=== PATIENT | female | born 1985 | race Caucasian/White ===

== ENCOUNTER 2017-02-11 13:55 | Emergency (ER) | payer OTHER ==
[~2017-02-11] VITALS: Ht 160 cm; Wt 120.0 kg
[2017-02-11 14:00] VITALS: Ht 160 cm; Wt 120.0 kg
[2017-02-11] MEDS ORDERED: SOD CHLORIDE 0.9% 1,000 ML IV STA (17:04)
[2017-02-11 17:18] VITALS: BP 122/83; PULSE 80; RESP 29
[2017-02-11 17:19] LABS: ADD SCAN DIFF NO
[2017-02-11 17:21] LABS: BASOPHILS % 0.2 % (0.0-2.0); EOSINOPHILS # 0.1 10^3/ul (0.0-0.5); EOSINOPHILS % 0.9 % (0.0-7.0); HEMOGLOBIN 10.8 g/dl (12.0-16.0); LYMPHOCYTES # 2.1 10^3/ul (0.8-2.9); LYMPHOCYTES % 32.2 % (15.0-51.0); MEAN CORPUSCULAR HEMOGLOBIN 31.3 pg (29.0-33.0); MEAN CORPUSCULAR HGB CONC 32.7 g/dl (32.0-37.0); MEAN CORPUSCULAR VOLUME 95.7 fl (82.0-101.0); MEAN PLATELET VOLUME 9.8 fl (7.4-10.4); MONOCYTE # 0.5 10^3/ul (0.3-0.9); MONOCYTES % 7.4 % (0.0-11.0); NEUTROPHIL # 3.9 10^3/ul (1.6-7.5); PLATELET COUNT 241 10^3/UL (140-415); RED BLOOD COUNT 3.45 10^6/ul (4.20-5.40); RED CELL DISTRIBUTION WIDTH 13.6 % (11.5-14.5); WHITE BLOOD COUNT 6.5 10^3/ul (4.8-10.8)
[2017-02-11 17:28] LABS: ADD UMIC YES; URINE BILIRUBIN (Dip) NEGATIVE (NEGATIVE); URINE BLOOD (Dip) TRACE (NEGATIVE); URINE COLOR YELLOW (YELLOW); URINE GLUCOSE (Dip) NEGATIVE (NEGATIVE); URINE KETONES (Dip) NEGATIVE (NEGATIVE); URINE LEUKOCYTE ESTERASE (Dip) 1+ (NEGATIVE); URINE NITRITE (Dip) NEGATIVE (NEGATIVE); URINE UROBILINOGEN (Dip) 1.0 E.U./dL (0.1-1.0)
--- NOTE | 2017-02-11 18:03 | RADRPT ---
PROCEDURE: US OB CLINICAL INDICATION: Vaginal Bleed () TECHNIQUE: Multiple sonographic images of the pelvis were obtained. The images were reviewed on a PACS workstation. COMPARISON: None FINDINGS: The cervix is not well visualized. There is a single viable intrauterine gestation. Cardiac activity is present with 132 beats per minute. There is a breech presentation. The placenta is fundal. There is no evidence for an abruption or placenta previa. There is a normal amount of amniotic fluid with an BARRY = 18.6 cm. Measurements were made in order to determine age. The results are as follows (cm): BPD =8.70 HC =31.18 AC =32.68 FL =6.94 Estimated gestational age by ultrasound of approximately 35 weeks, 4 days. The estimated date of delivery by ultrasound is 03/14/2017. EFW = 2820 grams IMPRESSION: Single viable intrauterine gestation of approximately 35 weeks, 4 days . The estimated date of delivery is 03/14/2017 . Breech presentation. Normal BARRY. RPTAT: EE Physician Joseph Date Time Electronically viewed and signed by Physician Joseph on 02/11/2017 18:02 /
--- NOTE | 2017-02-11 18:22 | ERD ---
ER Documentation Chief Complaint Date/Time DATE: 02/11/17 TIME: 18:18 Chief Complaint ALOC, DROWSY BIB HOMELESS RESCUE TO GET CHECKED OUT HPI 31-year-old female, history of homelessness, bipolar disorder who presents after a homeless rescue project evaluated the patient and found out that she may be . The patient is a she thinks she is about 4 months . She describes mild abdominal cramping no vaginal bleeding or discharge. Mild lower extremity swelling that has been consistent with prior . ROS All systems reviewed and are negative except as per history of present illness. Medications Home Meds No Active Prescriptions or Reported Meds Allergies Allergies: Coded Allergies: No Known Allergy (Unverified , 01/30/16) PMhx/Soc Hx Alcohol Use: Yes Hx Substance Use: Yes (meth use ) Hx Tobacco Use: Yes FmHx Family History: No diabetes Physical Exam Vitals Vital Signs Date Time Temp Pulse Resp B/P Pulse Ox O2 Delivery O2 Flow Rate FiO2 02/11/17 17:18 80 29 122/83 100 Room Air 02/11/17 14:00 98.0 92 18 133/78 99 Physical Exam General: Disheveled but no significant distress Head: Normocephalic, atraumatic. Eyes: Pupils equally reactive, EOM intact ENT: Moist mucous membranes Neck: Supple, no lymphadenopathy Respiratory: Lungs clear bilaterally, no distress Cardiovascular: RRR, no murmurs, rubs, or gallops Abdominal: Soft, gravid approximately 35-38 weeks gestation, nontender, no rebound or guarding : Deferred MSK: Bilateral lower extremity pedal edema, no unilateral swelling, 5/5 strength Neurologic: Alert and oriented, moving all extremities, normal speech, no focal weakness, no cerebellar signs Skin: No rash Psych: Normal mood Result Diagram: 02/11/17 1713 Results 24 hrs Laboratory Tests Test 02/11/17 17:13 White Blood Count 6.510^3/ul Red Blood Count 3.4510^6/ul Hemoglobin 10.8g/dl Hematocrit 33.0% Mean Corpuscular Volume 95.7fl Mean Corpuscular Hemoglobin 31.3pg Mean Corpuscular Hemoglobin Concent 32.7g/dl Red Cell Distribution Width 13.6% Platelet Count 67731^3/UL Mean Platelet Volume 9.8fl Neutrophils % 59.0% Lymphocytes % 32.2% Monocytes % 7.4% Eosinophils % 0.9% Basophils % 0.2% Nucleated Red Blood Cells % 0.0/100WBC Neutrophils # 3.910^3/ul Lymphocytes # 2.110^3/ul Monocytes # 0.510^3/ul Eosinophils # 0.110^3/ul Basophils # 0.010^3/ul Nucleated Red Blood Cells # 0.010^3/ul Current Medications Medications (Trade) Dose Ordered Sig/Shamika Route PRN Reason Start Time Stop Time Status Last Admin Dose Admin Sodium Chloride (NS) 1,000 ml @ 1,000 mls/hr Q1H STAT IV 02/11/17 17:04 02/11/17 18:03 DC 02/11/17 17:22 Procedures/MDM EKG, MONITORS, & DIAGNOSTIC IMAGING: us IMPRESSION: Single viable intrauterine gestation of approximately 35 weeks, 4 days . The estimated date of delivery is 03/14/2017 . Breech presentation. Normal BARRY. RPTAT: EE LAB INTERPRETATION: Rh+ Chemistry pending MEDICAL DECISION MAKING: The patient presents with abdominal pain and . Her clinical exam does not match her dates. Clinical exam is more consistent with late term gestation. The patient's abdominal pain is nonspecific and likely secondary to . No evidence of acute intra-abdominal process such as appendicitis or acute aortic process. The patient does have some mild pedal edema. Her blood pressure is in the 130s systolic. She does not meet diagnostic criteria for preeclampsia. However, liver function tests and LDH will be sent for screening given her poor primary care follow-up. The patient has not had OB care during this . ER COURSE: The patient has become agitated during her ER course. She wishes to leave without temperature profile. The patient does have bipolar disorder she has capacity. She is able to verbalize back me to the risks, benefits, alternatives. The patient will be leaving AGAINST MEDICAL ADVICE. It appears that the police unit with the patient will arrange for penitentiary. I strongly urged the patient to follow-up with an APPL[facility]QUE SEW[facility] and outpatient resources were provided. I kept the patient and/or family informed of laboratory and diagnostic imaging results throughout the emergency room course. DISPOSITION PLAN: Patient is leaving AGAINST MEDICAL ADVICE Departure Diagnosis: Primary Impression: Abdominal pain affecting Condition: Stable Patient Instructions: , New Dx Referrals: [facility] [id number] [facility] [address] [place] [address] OFFICE FAX , [facility] [address] [place] [address] [address]. MAO, [facility] [address] [place] [address] DR OSUNA, [facility] [address] [facility], [address], [place] [address] DR KEITHFELIX, [facility] [address] [facility], [place] [address] [facility] [address] [place] [address] [facility] [id number] [facility] [address] [facility] [place] [address] [address] TORRES, DAVID [address] [facility], [place] [address] DR BRANNON, [facility] [address] [place], [place] [id number] EBENEZER DOTSON MD February 11, 2017 18:21
[2017-02-11 18:35] LABS: URINE TOTAL PROTEIN (Dip) NEGATIVE (NEGATIVE)
[2017-02-11 18:36] LABS: SQUAMOUS EPITHELIAL CELL,UR MANY
[2017-02-11 18:37] LABS: BACTERIA,URINE MODERATE
[2017-02-11 19:02] LABS: ALBUMIN 2.7 g/dl (3.3-4.9); ALBUMIN/GLOBULIN RATIO 0.87; BILIRUBIN,INDIRECT 0.2 mg/dl (0-1.1); BILIRUBIN,TOTAL 0.2 mg/dl (0.2-1.3); CALCIUM 8.7 mg/dl (8.4-10.2); CREATININE 0.53 mg/dl (0.44-1.00); POTASSIUM 3.9 mmol/L (3.5-5.1); TOTAL PROTEIN 5.8 g/dl (6.1-8.1)
== END 2017-02-11 18:24 | disposition home or self-care (01) ==
LOC: E/R 13:55
DX: O26.893 Other specified pregnancy related conditions, third trimester (principal); R10.9 Unspecified abdominal pain; R40.2362 Coma scale, best motor response, obeys commands, at arrival to emergency department; R40.2252 Coma scale, best verbal response, oriented, at arrival to emergency department; R40.2142 Coma scale, eyes open, spontaneous, at arrival to emergency department; Z3A.35 35 weeks gestation of pregnancy
CPT/HCPCS: 36415; 76801; 80053; 81001; 83615; 83690; 84702; 85025; 86900; 86901; 87086; 99285; J7030; 81003

== ENCOUNTER 2017-03-13 16:55 | Inpatient (IN) | payer MEDICAID, OTHER ==
[2017-03-13] MEDS ORDERED: LACTATED RINGER'S 1,000 ML IV SCH (16:57)
[2017-03-13] MEDS ORDERED: METHYLERGONOVINE 0.2 MG INJ IM PRN ×2 (17:00→17:30)
[2017-03-13] MEDS ORDERED: CARBOPROST 250 MCG INJ IM PRN ×2 (17:00→17:30)
[2017-03-13] MEDS ORDERED: LIDOCAINE 1% (MPF) 30 ML INJ INJ PRN (17:00)
[2017-03-13] MEDS ORDERED: IBUPROFEN 600 MG TAB PO PRN (17:00)
[2017-03-13] MEDS ORDERED: OXYTOCIN 30 UNITS/LR 500 ML IV SCH ×2 (17:00)
[2017-03-13] MEDS ORDERED: BUTORPHANOL 2 MG INJ IV PRN (17:00)
[2017-03-13] MEDS ORDERED: OXYTOCIN 30 UNITS/LR 500 ML IV PRN ×2 (17:00→17:30)
[2017-03-13] MEDS ORDERED: MISOPROSTOL 200 MCG TAB PR PRN ×2 (17:00→17:30)
[2017-03-13] MEDS ORDERED: LACTATED RINGER'S 1,000 ML IV PRN (17:00)
[2017-03-13] MEDS ORDERED: BENZOCAINE 20% 56 ML SPRAY TOP PRN (17:30)
[2017-03-13] MEDS ORDERED: OXYCODONE/ASPIRIN (4.88/325) TAB PO PRN (17:30)
--- NOTE | 2017-03-13 17:34 | TRIAGE ---
OB Triage Datetime Report Generated by CPN: 03/13/2017 17:34 Datetime: 03/13/2017 17:29 Assessment Type: Admission Assessment Vaginal Bleeding: None Maternal Assessment Level of Consciousness: Fully Conscious DTR's/Clonus: DTRs 2+; No Clonus Headache: Denies Blurred Vision: No Respiratory Effort: Unlabored; Regular Rhythm; Equal Expansion Breath Sounds, Left: Clear and Equal Breath Sounds, Right: Clear and Equal Nausea/Vomiting: Denies RUQ Epigastric Pain: Denies Lower Extremities Edema: None Upper Extremities Edema: None Facial Edema: None Fall Risk Assessment History of Falling: (0) No Secondary Diagnosis: (0) No Ambulatory Aid: (0) Bedrest/Nurse Assist IV Therapy: (0) No Gait: (0) Normal/Bedrest/Immobile Mental Status: (0) Oriented to Own Ability Pain Assessment Pain Scale: 0 Pain Presence: None/Denies Pain Type: N/A Pain Goal: 2 Vaginal Exam Membrane Status: PT DELIVERED. CAME IN RUPTUREDM, 10 CM DILATED. Membranes Ruptured Date/Time: 03/13/2017 16:57 Membranes Rupture Method: Spontaneous Amniotic Fluid Color: Heavy Meconium Amniotic Fluid Amount: Moderate Amniotic Fluid Odor: None Datetime: 03/13/2017 17:28 Time of Arrival: 03/20/2017 15:00 EGA: 41.0 Arrived By: Wheelchair Arrived By: Ambulatory Arrived From: Home Arrived From: Home Chief Complaint: UCS Rupture of Membranes: Ruptured Vaginal Bleeding: None Vaginal Discharge: Denies Recent Sexual Intercouse: Denies Abdominal Trauma: Not Applicable Patient Complaints: Contractions Time Provider Notified: 03/20/2017 16:55 Provider Notified: DR THOMPSON Initial Plan: EFM,CALL DR THOMPSON Datetime: 03/13/2017 17:27 Maternal Assessment Level of Consciousness: Fully Conscious DTR's/Clonus: DTRs 2+; No Clonus Headache: Denies Blurred Vision: No Respiratory Effort: Unlabored; Regular Rhythm; Equal Expansion Breath Sounds, Left: Clear and Equal Breath Sounds, Right: Clear and Equal Nausea/Vomiting: Denies RUQ Epigastric Pain: Denies Facial Edema: None Temperature Route: Axillary Fall Risk Assessment History of Falling: (0) No Secondary Diagnosis: (0) No Ambulatory Aid: (0) Bedrest/Nurse Assist IV Therapy: (0) No Gait: (0) Normal/Bedrest/Immobile Mental Status: (0) Oriented to Own Ability Fall Score: 0 Fall Risk Score Definition: No Risk: No action required
--- NOTE | 2017-03-13 17:37 | HP ---
Date/Time of Note Date/Time of Note DATE: 03/13/17 TIME: 17:32 OB - History Hx of Present Free Text/Dictation 31 y.o. with an IUP with unknown dates as she had no care, previous section x 1, and came in active labor and was completely dilated on admission. : 2 Para: 1 Care: None Ultrasounds: No ultrasounds Obstetrical Complications: None Medical Complications: Other (Bipolar disorder, not on meds since September) Past Family/Social History * Past Medical, Surgical, Family and Obstetric Histories reviewed with pt as she had no care. Blood Type: Unknown Rubella: unknown RPR/VDRL: Unknown GBS Status: Unknown HBsAG: Unknown OB Admission Exam Physical Exam HEENT: WNL Heart: Rhythm Normal Lungs: Clear Abdomen: WNL Extremities: Normal Reflexes: Normal Cervical Dilatation: 10cm Effacement: 100% Station: +2 Membranes: Ruptured Amniotic Fluid: Thick Meconium (Pt had her baby before we were able to asses heart tones or run a heart tracing) Contractions on Admission: < 5 Minutes Apart Intensity: Firm OB Assessment/Plan Reason for admission: active labor Other Assessment: Bipolar disorder. Previous x 1. Plan: Expectant Management MALKA THOMPSON MD Mar 13, 2017 17:37
--- NOTE | 2017-03-13 17:40 | LDN ---
Date/Time of Note Date/Time of Note DATE: 03/13/17 TIME: 17:37 Delivery Summary of a viable baby boy weighing 2910 grams or 6# 7oz, 19.5" long and with Apgars of 7/8 with thick meconium present. Weeks of Gestation Unknown. Placenta Delivered: Spontaneously Meconium: Particulate Episiotomy: No Perineal laceration: 2 Laceration repair: Second degree midline laceration repaired with 2-0 chromic. Anesthesia type: Local Estimated blood loss: 200 Sponge & Needle done & correct: Yes All needle counts correct: Yes Any foreign bodies felt in the: No (vagina) Problems: Delivery Information Sex Sex: male Apgars 1 Minute: 7 5 Minute: 8 Suctioning Nose & mouth suctioned at harjit: No Delee suction performed: No Umbilical Cord Umbilical cord with: 3 Vessels Cord presentations: no nuchal cord Cord Blood was obtained: Yes Mother & Baby Disposition Disposition Mom & Baby to Maternity; Good: Yes Baby to NICU: No MALKA THOMPSON MD Mar 13, 2017 17:40
[2017-03-13 17:41] LABS: ADD SCAN DIFF NO
[2017-03-13 17:44] LABS: BASOPHILS % 0.1 % (0.0-2.0); HEMATOCRIT 40.1 % (37.0-47.0); HEMOGLOBIN 13.2 g/dl (12.0-16.0); LYMPHOCYTES # 1.4 10^3/ul (0.8-2.9); LYMPHOCYTES % 8.3 % (15.0-51.0); MEAN CORPUSCULAR HEMOGLOBIN 31.1 pg (29.0-33.0); MEAN CORPUSCULAR HGB CONC 32.9 g/dl (32.0-37.0); MEAN CORPUSCULAR VOLUME 94.4 fl (82.0-101.0); MEAN PLATELET VOLUME 11.3 fl (7.4-10.4); MONOCYTE # 0.5 10^3/ul (0.3-0.9); MONOCYTES % 3.2 % (0.0-11.0); NEUTROPHIL # 14.8 10^3/ul (1.6-7.5); NEUTROPHILS % 87.9 % (39.0-77.0); PLATELET COUNT 227 10^3/UL (140-415); RED BLOOD COUNT 4.25 10^6/ul (4.20-5.40); RED CELL DISTRIBUTION WIDTH 14.7 % (11.5-14.5); WHITE BLOOD COUNT 16.8 10^3/ul (4.8-10.8)
[2017-03-13 18:00] LABS: INR 0.86; PARTIAL THROMBOPLASTIN TIME 27.1 Sec (25.0-35.0); PROTIME 11.7 Sec (12.2-14.2); PT RATIO 0.9
[2017-03-13] MEDS: IBUPROFEN 600 MG TAB PO SCH (18:00)
[2017-03-13] MEDS: OXYTOCIN 30 UNITS/LR 500 ML IV SCH ×2 (19:27→19:28)
[2017-03-13 21:04] LABS: CANNABINOIDS Negative (NEGATIVE)
[2017-03-13 21:14] LABS: BARBITURATES Negative (NEGATIVE); BENZODIAZEPINES Negative (NEGATIVE); COCAINE Negative (NEGATIVE); OPIATES Negative (NEGATIVE)
[2017-03-13 21:30] VITALS: BP 133/80; PULSE 82
[2017-03-14] MEDS: LACTATED RINGER'S 1,000 ML IV* SCH ×3 (01:27→09:27)
[2017-03-14] MEDS: IBUPROFEN 600 MG TAB PO SCH ×5 (05:57→23:33)
[2017-03-14 07:06] LABS: ADD SCAN DIFF NO
[2017-03-14 07:16] LABS: BASOPHILS % 0.2 % (0.0-2.0); EOSINOPHILS # 0.1 10^3/ul (0.0-0.5); EOSINOPHILS % 0.5 % (0.0-7.0); HEMATOCRIT 32.4 % (37.0-47.0); LYMPHOCYTES # 2.9 10^3/ul (0.8-2.9); MEAN CORPUSCULAR VOLUME 94.2 fl (82.0-101.0); MEAN PLATELET VOLUME 11.4 fl (7.4-10.4); MONOCYTE # 0.8 10^3/ul (0.3-0.9); MONOCYTES % 6.3 % (0.0-11.0); NEUTROPHIL # 8.7 10^3/ul (1.6-7.5); NEUTROPHILS % 69.6 % (39.0-77.0); PLATELET COUNT 216 10^3/UL (140-415); RED BLOOD COUNT 3.44 10^6/ul (4.20-5.40); RED CELL DISTRIBUTION WIDTH 14.7 % (11.5-14.5); WHITE BLOOD COUNT 12.5 10^3/ul (4.8-10.8)
[2017-03-14 08:00] VITALS: BP 137/81; RESP 18
[2017-03-14 19:20] VITALS: BP 133/79; PULSE 88; RESP 19
[2017-03-15 04:00] VITALS: BP 115/68; PULSE 82; RESP 20
[2017-03-15] MEDS: IBUPROFEN 600 MG TAB PO SCH ×3 (05:59→18:05)
[2017-03-15 08:30] VITALS: BP 110/64; PULSE 97; RESP 19
[2017-03-15] MEDS ORDERED: DIPHTH/TET/ACEL PERTUSS (ADULT) 0.5 ML VIAL IM* ONE (09:00)
[2017-03-15 16:46] VITALS: BP 115/65; PULSE 98; RESP 18
--- NOTE | 2017-03-15 17:16 | PD.PPDC ---
WINDSHIELD INSTALLER Discharge Instruction Condition Patient Condition: Good Diet Diet: Resume Regular Diet Activity/Restrictions Activity: Normal Activity Follow-up Follow-up with Physician: 4, Week/Weeks Provider Information: fu with your OBGYN in 4-6 weeks Return to clinic for HOTEL SERVER Instructions: Fever greater than 101 Worsening abdominal pain Excessive Vaginal Bleeding PARADISE REYNA MD Mar 15, 2017 17:16
--- NOTE | 2017-03-15 17:18 | DS ---
Date/Time of Note Date/Time of Note DATE: 03/15/17 TIME: 17:17 Obstetrical Discharge Record Final Diagnosis Final Diagnosis: Term delivered Other Final Diagnosis pt no PNC and with viable Vaginal Delivery Obstetrical Delivery: Successful Condition on Discharge Physical Assessment Voiding: Yes Bowel Movement: Yes Breast: Soft, non-tender Fundus: Firm Calf Tenderness: No Patient Condition: Stable PARADISE REYNA MD Mar 15, 2017 17:18
[2017-03-17 04:39] LABS: RUBELLA ANTIBODY - IGG 2.21 index
== END 2017-03-15 21:05 | disposition home or self-care (01) | DRG 775 ==
LOC: UNDOADMIN 16:55 → L-D 16:55 → OBT 16:55 → L-D 16:56 → EDSTATUS 17:15 → PP1 21:23
PROVIDERS: ADMIT Obstetrics & Gynecology; ATTEND Obstetrics & Gynecology
PROC: 10E0XZZ Delivery of Products of Conception, External Approach (ICD-10-PCS; principal; 2017-03-13)
PROC: 0KQM0ZZ Repair Perineum Muscle, Open Approach (ICD-10-PCS; 2017-03-13)
PROC: 3E00X4Z Introduction of Serum, Toxoid and Vaccine into Skin and Mucous Membranes, External Approach (ICD-10-PCS; 2017-03-15)
DX: O70.1 Second degree perineal laceration during delivery (principal); Z37.0 Single live birth; O48.0 Post-term pregnancy; Z23 Encounter for immunization; Z3A.40 40 weeks gestation of pregnancy
CPT/HCPCS: 80307; 85025; 85610; 85730; 86592; 86703; 86762; 86900; 86901; 87340; 90715; G0463; J2590; J7120

== ENCOUNTER → 2017-04-03 | Emergency (ER) | payer MEDICAID ==
[~2017-04-03] VITALS: Ht 172.7 cm; Wt 85.0 kg
[~2017-04-03] MED LIST: HALOPERIDOL 5 MG INJ IM ONE; HALOPERIDOL 5 MG INJ ONE; LORAZEPAM 2 MG INJ IM STA
[2017-04-03 20:31] VITALS: Ht 172.7 cm; Wt 85.0 kg
[2017-04-03 21:05] LABS: ADD SCAN DIFF NO
[2017-04-03 21:08] LABS: BASOPHILS % 0.1 % (0.0-2.0); EOSINOPHILS # 0.1 10^3/ul (0.0-0.5); EOSINOPHILS % 1.1 % (0.0-7.0); HEMATOCRIT 40.2 % (37.0-47.0); HEMOGLOBIN 12.9 g/dl (12.0-16.0); LYMPHOCYTES % 41.2 % (15.0-51.0); MEAN CORPUSCULAR HEMOGLOBIN 30.9 pg (29.0-33.0); MEAN CORPUSCULAR HGB CONC 32.1 g/dl (32.0-37.0); MEAN CORPUSCULAR VOLUME 96.2 fl (82.0-101.0); MEAN PLATELET VOLUME 10.3 fl (7.4-10.4); MONOCYTE # 0.6 10^3/ul (0.3-0.9); MONOCYTES % 8.8 % (0.0-11.0); NEUTROPHIL # 3.5 10^3/ul (1.6-7.5); NEUTROPHILS % 48.7 % (39.0-77.0); PLATELET COUNT 239 10^3/UL (140-415); RED BLOOD COUNT 4.18 10^6/ul (4.20-5.40); RED CELL DISTRIBUTION WIDTH 13.5 % (11.5-14.5); WHITE BLOOD COUNT 7.2 10^3/ul (4.8-10.8)
[2017-04-03 21:27] LABS: ALANINE AMINOTRANSFERASE 57 IU/L (13-69); ALBUMIN 4.5 g/dl (3.3-4.9); ALBUMIN/GLOBULIN RATIO 1.66; ALKALINE PHOSPHATASE 113 IU/L (42-121); ANION GAP 12 (8-16); ASPARTATE AMINO TRANSFERASE 66 IU/L (15-46); BILIRUBIN,INDIRECT 0.2 mg/dl (0-1.1); BILIRUBIN,TOTAL 0.2 mg/dl (0.2-1.3); BLOOD UREA NITROGEN 11 mg/dl (7-20); CALCIUM 8.9 mg/dl (8.4-10.2); CARBON DIOXIDE 26 mmol/L (21-31); CHLORIDE 104 mmol/L (97-110); CREATININE 0.59 mg/dl (0.44-1.00); GLUCOSE 94 mg/dl (70-220); POTASSIUM 3.1 mmol/L (3.5-5.1); SODIUM 139 mmol/L (135-144); TOTAL PROTEIN 7.2 g/dl (6.1-8.1)
[2017-04-03 21:32] LABS: ACETAMINOPHEN < 10.0 ug/ml (10.0-30.0); ETHANOL < 10.0 mg/dl; SALICYLATE < 1.0 mg/dl (5.0-30.0)
--- NOTE | 2017-04-03 22:26 | ERA ---
ER Documentation Chief Complaint Date/Time DATE: 04/03/17 TIME: 22:19 Chief Complaint bib ra w/ lapd for psych/erratic behavior r/t meth use. 20 days post HPI 32-year-old woman brought in by EMS for erratic aggressive behavior patient does have a long history of psychiatric illness and recently gave (her infant is in [facility] N[facility]). Patient has not been using her medications and was agitated running around in the street, questionable drug abuse. She had no trauma, no fevers or chills, no vomiting or diarrhea, and denies vaginal bleeding. Patient transported here by EMS initially under [employer] custody. ROS All systems reviewed and are negative except as per history of present illness. Medications Home Meds No Active Prescriptions or Reported Meds Allergies Allergies: Coded Allergies: No Known Allergy (Unverified , 01/30/16) PMhx/Soc Psychiatric illness Hx Miscellaneous Medical Probl: Yes (dyslipidemia, "thyroid problem") Hx Alcohol Use: Yes Hx Substance Use: Yes (meth use ) Hx Tobacco Use: Yes Smoking Status: Current every day smoker FmHx Family History: No diabetes Physical Exam Vitals Vital Signs Date Time Temp Pulse Resp B/P Pulse Ox O2 Delivery O2 Flow Rate FiO2 04/03/17 20:31 98.5 78 20 136/76 97 Physical Exam GENERAL: Well-developed, agitated HEENT: Moist mucous membranes, pink conjunctiva, no cervical spine tenderness or step-off deformities, no goiter, no jaundice or icterus, extraocular movements intact without pain. No submandibular induration, and no pharyngeal erythema NEURO: Alert and oriented 3, cranial nerves II through XII intact bilaterally, pupils equal round reactive to light, no focal deficits or facial asymmetry, sensation intact distally Strength 5/5 in upper and lower extremities bilaterally CARDIAC: Regular rate rhythm, no murmurs rubs or gallops LUNGS: Clear bilaterally no wheezing crackles or stridor ABDOMEN: Soft nontender, no guarding, no rigidity, no rebound, no psoas sign no obturator sign. Normoactive bowel sounds SKIN: Warm and dry to touch, no abrasions, contusions, or hematomas, no lacerations, no ecchymosis, no target lesions, and without ulcers EXTREMITIES: No clubbing cyanosis or edema, calves are bilaterally symmetrical, no Homans sign, no popliteal cord sign. Distal pulses equal and bilateral PSYCH: Agitated Result Diagram: 04/03/17205404/03/172054 Results 24 hrs Laboratory Tests Test 04/03/17 20:55 White Blood Count 7.210^3/ul Red Blood Count 4.1810^6/ul Hemoglobin 12.9g/dl Hematocrit 40.2% Mean Corpuscular Volume 96.2fl Mean Corpuscular Hemoglobin 30.9pg Mean Corpuscular Hemoglobin Concent 32.1g/dl Red Cell Distribution Width 13.5% Platelet Count 06534^3/UL Mean Platelet Volume 10.3fl Neutrophils % 48.7% Lymphocytes % 41.2% Monocytes % 8.8% Eosinophils % 1.1% Basophils % 0.1% Nucleated Red Blood Cells % 0.0/100WBC Neutrophils # 3.510^3/ul Lymphocytes # 3.010^3/ul Monocytes # 0.610^3/ul Eosinophils # 0.110^3/ul Basophils # 0.010^3/ul Nucleated Red Blood Cells # 0.010^3/ul Sodium Level 139mmol/L Potassium Level 3.1mmol/L Chloride Level 104mmol/L Carbon Dioxide Level 26mmol/L Anion Gap 12 Blood Urea Nitrogen 11mg/dl Creatinine 0.59mg/dl Glucose Level 94mg/dl Calcium Level 8.9mg/dl Total Bilirubin 0.2mg/dl Direct Bilirubin 0.00mg/dl Indirect Bilirubin 0.2mg/dl Aspartate Amino Transf (AST/SGOT) 66IU/L Alanine Aminotransferase (ALT/SGPT) 57IU/L Alkaline Phosphatase 113IU/L Total Protein 7.2g/dl Albumin 4.5g/dl Globulin 2.70g/dl Albumin/Globulin Ratio 1.66 Beta HCG, Quantitative < 2.4mIU/ml Salicylates Level < 1.0mg/dl Acetaminophen Level < 10.0ug/ml Ethyl Alcohol Level < 10.0mg/dl Current Medications Medications (Trade) Dose Ordered Sig/Shamika Route PRN Reason Start Time Stop Time Status Last Admin Dose Admin Lorazepam (Ativan) 2 mg ONCE STAT IM 04/03/17 20:59 04/03/17 21:01 DC Procedures/MDM Security one-to-one watch was established, and [employer] officers placed her on a 5150 psychiatric hold. We called nearby [facility] psychiatric facilities to arrange for transfer after she was placed on a psychiatric hold. Patient did not require further sedation while here in the emergency department. CBC and electrolytes were within normal limits, liver function tests normal, test negative, alcohol Tylenol aspirin levels negative Urine drug screen has been ordered results are pending I will follow-up. Patient's behavioral symptoms have stabilized while in the department. Patient is medically cleared and appropriate for psychiatric inpatient management and workup. No e/o neurologic, toxic, infectious, or metabolic cause. I suspect methamphetamine abuse and initial intoxication as well. Departure Diagnosis: Primary Impression: Psychosis Qualified Code: F29 - Psychosis, unspecified psychosis type Additional Impression: Methamphetamine abuse Condition: Stable KAPIL CINTRON MD Apr 03, 2017 22:26
[2017-04-04 01:37] VITALS: BP 148/90; PULSE 80; RESP 20; TEMP 98.5
== END ==
LOC: E/R 20:24
DX: O99.345 Other mental disorders complicating the puerperium (principal); F29 Unspecified psychosis not due to a substance or known physiological condition; F15.10 Other stimulant abuse, uncomplicated; F17.210 Nicotine dependence, cigarettes, uncomplicated
CPT/HCPCS: 36415; 80053; 80306; 84702; 85025; Z7502; 96372; J1630; J2060

== ENCOUNTER 2017-06-10 14:48 | Emergency (ER) | payer MEDICAID ==
[~2017-06-10] VITALS: Ht 175.3 cm; Wt 54.5 kg
[2017-06-10] MEDS ORDERED: LIDOCAINE 2%/EPI MPF (SDV) 20 ML VIAL INJ STA (14:52)
[2017-06-10] MEDS ORDERED: LORAZEPAM 2 MG INJ IM STA (14:52)
[2017-06-10] MEDS ORDERED: HALOPERIDOL 5 MG INJ IM STA (14:52)
[2017-06-10] MEDS ORDERED: DIPHTH/TET/ACEL PERTUSS (ADULT) 0.5 ML VIAL IM ONE (15:00)
[2017-06-10] MEDS ORDERED: DIPHENHYDRAMINE 50 MG INJ IM ONE (15:00)
[2017-06-10 15:13] VITALS: Ht 175.3 cm; Wt 54.5 kg
[2017-06-10 15:54] LABS: BASOPHILS % 0.3 % (0.0-2.0); EOSINOPHILS # 0.1 10^3/ul (0.0-0.5); EOSINOPHILS % 1.5 % (0.0-7.0); HEMATOCRIT 34.1 % (37.0-47.0); HEMOGLOBIN 11.3 g/dl (12.0-16.0); LYMPHOCYTES # 2.3 10^3/ul (0.8-2.9); LYMPHOCYTES % 31.6 % (15.0-51.0); MEAN CORPUSCULAR HEMOGLOBIN 31.6 pg (29.0-33.0); MEAN CORPUSCULAR HGB CONC 33.1 g/dl (32.0-37.0); MEAN CORPUSCULAR VOLUME 95.3 fl (82.0-101.0); MEAN PLATELET VOLUME 9.7 fl (7.4-10.4); MONOCYTE # 0.6 10^3/ul (0.3-0.9); MONOCYTES % 7.5 % (0.0-11.0); PLATELET COUNT 278 10^3/UL (140-415); RED BLOOD COUNT 3.58 10^6/ul (4.20-5.40); RED CELL DISTRIBUTION WIDTH 13.5 % (11.5-14.5); WHITE BLOOD COUNT 7.4 10^3/ul (4.8-10.8)
--- NOTE | 2017-06-10 16:16 | RADRPT ---
PROCEDURE: Noncontrast CT Head. CLINICAL INDICATION: Medical clearance. Laceration. TECHNIQUE: Noncontrast CT of the head was obtained. The administered radiation dose was CTDI vol = 44.9 mGy, DLP = 630.2 mGy-cm. One or more of the following dose reduction techniques were used: Auto mated exposure control, Adjustment of the mA and/or kV according to patient size, or Use of iterativ e reconstruction technique. COMPARISON: There are no similar studies submitted for comparison. FINDINGS: The ventricles and sulci are within normal limits. There is no loss of valderrama-white differentiation to suggest acute territorial infarction. There is no acute intracranial hemorrhage. There is no mass effect. No midline shift is identified. The orbits are within normal limits. The paranasal sinuses are well aerated. No destructive osseous lesion is identified. IMPRESSION: No acute intracranial hemorrhage. Further findings as detailed above. RPTAT: PP .Sergei Curry MD, MD Date Time Electronically viewed and signed by .Sergei Curry MD, on 06/10/2017 16:15 .F/
[2017-06-10 16:18] LABS: ALANINE AMINOTRANSFERASE 37 IU/L (13-69); ALBUMIN 3.8 g/dl (3.3-4.9); ALBUMIN/GLOBULIN RATIO 1.15; ALKALINE PHOSPHATASE 67 IU/L (42-121); ANION GAP 18 (8-16); ASPARTATE AMINO TRANSFERASE 44 IU/L (15-46); BILIRUBIN,INDIRECT 0.3 mg/dl (0-1.1); BILIRUBIN,TOTAL 0.3 mg/dl (0.2-1.3); BLOOD UREA NITROGEN 10 mg/dl (7-20); CALCIUM 9.1 mg/dl (8.4-10.2); CARBON DIOXIDE 27 mmol/L (21-31); CHLORIDE 107 mmol/L (97-110); CREATININE 0.69 mg/dl (0.44-1.00); GLUCOSE 132 mg/dl (70-220); POTASSIUM 3.5 mmol/L (3.5-5.1); SODIUM 148 mmol/L (135-144); TOTAL PROTEIN 7.1 g/dl (6.1-8.1)
[2017-06-10 16:50] LABS: ACETAMINOPHEN < 10.0 ug/ml (10.0-30.0); ETHANOL < 10.0 mg/dl; SALICYLATE < 1.0 mg/dl (5.0-30.0)
[2017-06-10 16:53] LABS: ADD UMIC YES; UR ASCORBIC ACID 20 mg/dL (NEGATIVE); UR BACTERIA FEW /HPF (NONE SEEN); UR BILIRUBIN (Dip) 1+ mg/dL (NEGATIVE); UR BLOOD (Dip) NEGATIVE (NEGATIVE); UR CLARITY CLOUDY (CLEAR); UR COLOR AMBER (YELLOW); UR GLUCOSE (Dip) NEGATIVE (NEGATIVE); UR KETONES (Dip) TRACE mg/dL (NEGATIVE); UR LEUKOCYTE ESTERASE (Dip) 2+ Leu/ul (NEGATIVE); UR MUCUS MANY /HPF (NONE SEEN); UR NITRITE (Dip) NEGATIVE (NEGATIVE); UR RBC 5 /HPF (0-5); UR SPECIFIC GRAVITY (Dip) 1.033 (1.003-1.030); UR SQUAMOUS EPITHELIAL CELL MODERATE /HPF (FEW); UR TOTAL PROTEIN (Dip) 2+ mg/dl (NEGATIVE); UR UROBILINOGEN (Dip) 1+ mg/dL (NEGATIVE); UR WBC CLUMPS FEW /HPF (NONE SEEN)
[2017-06-10 17:19] LABS: CANNABINOIDS Positive (NEGATIVE)
[2017-06-10 17:25] LABS: BARBITURATES Negative (NEGATIVE); BENZODIAZEPINES Negative (NEGATIVE); COCAINE Negative (NEGATIVE); OPIATES Negative (NEGATIVE)
[2017-06-10] MEDS ORDERED: NITROFURANTOIN (SR) 100 MG CAP PO ONE (18:00)
--- NOTE | 2017-06-10 19:14 | ERD ---
ER Documentation Chief Complaint Date/Time DATE: 06/10/17 TIME: 19:11 Chief Complaint BROUGHT IN VIA EMS FROM THE STREETS DUE TO AGITATION AND HURTING OTHERS - HPI Patient is a 32-year-old female who presents altered. The patient was brought in by ambulance. The patient was agitated and combative. The police were with the patient as well but she was not under arrest. There is possible drug use per the paramedics. She did have a laceration to her scalp.Please note the history and physical exam is limited secondary to the patient's mental status at this time. ROS All systems reviewed and are negative except as per history of present illness. Medications Home Meds No Active Prescriptions or Reported Meds Allergies Allergies: Coded Allergies: No Known Allergy (Unverified , 01/30/16) PMhx/Soc Medical and Surgical Hx: pt denies Surgical Hx Hx Miscellaneous Medical Probl: Yes (dyslipidemia, "thyroid problem") Hx Alcohol Use: Yes Hx Substance Use: Yes (meth use ) Hx Tobacco Use: Yes Smoking Status: Current every day smoker FmHx Family History: No diabetes Physical Exam Vitals Vital Signs Date Time Temp Pulse Resp B/P Pulse Ox O2 Delivery O2 Flow Rate FiO2 06/10/17 19:00 100.0 85 16 116/68 96 Room Air 06/10/17 15:13 98.9 84 20 134/84 99 Physical Exam Const: Agitated and combative Head: Atraumatic Eyes: Normal Conjunctiva ENT: Normal External Ears, Nose and Mouth. Neck: Full range of motion..~ No meningismus. Resp: Clear to auscultation bilaterally Cardio: Regular rate and rhythm, no murmurs Abd: Soft, non tender, non distended. Normal bowel sounds Skin: No petechiae or rashes Back: No midline or flank tenderness Ext: No cyanosis, or edema Neur: Awake But agitated Psych: Agitated and psychomotor agitation Result Diagram: 06/10/17 1535 06/10/17 1535 Results 24 hrs Laboratory Tests Test 06/10/17 15:35 06/10/17 16:25 White Blood Count 7.410^3/ul Red Blood Count 3.5810^6/ul Hemoglobin 11.3g/dl Hematocrit 34.1% Mean Corpuscular Volume 95.3fl Mean Corpuscular Hemoglobin 31.6pg Mean Corpuscular Hemoglobin Concent 33.1g/dl Red Cell Distribution Width 13.5% Platelet Count 53796^3/UL Mean Platelet Volume 9.7fl Neutrophils % 59.0% Lymphocytes % 31.6% Monocytes % 7.5% Eosinophils % 1.5% Basophils % 0.3% Nucleated Red Blood Cells % 0.0/100WBC Neutrophils # (Manual) 4.410^3/ul Lymphocytes # 2.310^3/ul Monocytes # 0.610^3/ul Eosinophils # 0.110^3/ul Basophils # 0.010^3/ul Nucleated Red Blood Cells # 0.010^3/ul Sodium Level 148mmol/L Potassium Level 3.5mmol/L Chloride Level 107mmol/L Carbon Dioxide Level 27mmol/L Anion Gap 18 Blood Urea Nitrogen 10mg/dl Creatinine 0.69mg/dl Glucose Level 132mg/dl Calcium Level 9.1mg/dl Total Bilirubin 0.3mg/dl Direct Bilirubin 0.00mg/dl Indirect Bilirubin 0.3mg/dl Aspartate Amino Transf (AST/SGOT) 44IU/L Alanine Aminotransferase (ALT/SGPT) 37IU/L Alkaline Phosphatase 67IU/L Total Protein 7.1g/dl Albumin 3.8g/dl Globulin 3.30g/dl Albumin/Globulin Ratio 1.15 Salicylates Level < 1.0mg/dl Acetaminophen Level < 10.0ug/ml Ethyl Alcohol Level < 10.0mg/dl Urine Color ANDREA Urine Clarity CLOUDY Urine pH 5.0 Urine Specific [place] 1.033 Urine Ketones TRACEmg/dL Urine Nitrite NEGATIVEmg/dL Urine Bilirubin 1+mg/dL Urine Urobilinogen 1+mg/dL Urine Leukocyte Esterase 2+Carlos Alberto/ul Urine Microscopic RBC 5/HPF Urine Microscopic WBC 45/HPF Urine Squamous Epithelial Cells MODERATE/HPF Urine Bacteria FEW/HPF Urine Mucus MANY/HPF Urine Hemoglobin NEGATIVEmg/dL Urine Glucose NEGATIVEmg/dL Urine Total Protein 2+mg/dl Urine Opiates Screen Negative Urine Barbiturates Negative Urine Amphetamines Screen POSITIVE Urine Benzodiazepines Screen Negative Urine Cocaine Screen Negative Urine Cannabinoids Positive Current Medications Medications (Trade) Dose Ordered Sig/Shamika Route PRN Reason Start Time Stop Time Status Last Admin Dose Admin Lorazepam (Ativan) 2 mg ONCE STAT IM 06/10/17 14:52 06/10/17 14:54 DC 06/10/17 15:33 Haloperidol (Haldol) 5 mg ONCE STAT IM 06/10/17 14:52 06/10/17 14:54 DC 06/10/17 15:33 Diphenhydramine HCl (Benadryl) 50 mg ONCE ONCE IM 06/10/17 15:00 06/10/17 15:01 DC 06/10/17 15:33 Diphtheria/ Tetanus/Acell Pertussis (Adacel) 0.5 ml ONCE ONCE IM 06/10/17 15:00 06/10/17 15:01 DC 06/10/17 15:33 Lidocaine/ Epinephrine (Xylocaine 2%/ Epi Mpf(Sdv)) 20 ml ONCE STAT INJ 06/10/17 14:52 06/10/17 14:54 DC 06/10/17 15:32 Nitrofurantoin Macrocrystals (Macrobid) 100 mg ONCE ONCE PO 06/10/17 18:00 06/10/17 18:01 DC 06/10/17 18:10 Procedures/MDM CT brain negative for trauma per radiology. Patient is a 32-year-old female who presents with agitation and combativeness. She needed sedation with Haldol, Ativan, and Benadryl for her safety and safety of the staff. The patient has laboratory studies which were basically normal but a urine drug screen does show positive for amphetamines and cannabinoids. CT scan of the brain shows no skull fracture or hemorrhage. I repaired her laceration at the bedside. She will get a psychiatry consultation and disposition will be based on this report. Laceration Repair by me: Anesthesia: 1% lidocaine [with] epinephrine locally Location: Forhead Tendon/Joint/Nerves: No injury Foreign body: None detected after copious irrigation and exploration Technique: Simple Interrupted Sutures Complexity: No subcutaneous sutures/mucosal repair/ edge excision Post Closure Length: 4 cm Patient's bleeding was easily controlled in the department and there is no indication of anemia. No evidence of compartment syndrome, neurologic injury, vascular injury, open joint, tendon laceration, or foreign body. Patient is appropriate for outpatient follow up. 48 hour wound check. Scar minimization instructions given. Critical Care: Time: 35 minutes excluding all billable procedures. Treatments/Evaluations: Close monitoring and treatment of unstable vital signs, cardiorespiratory, and neurologic status, while maintaining tight balance of fluid, respiratory, and cardiac interventions. Departure Diagnosis: Primary Impression: Cystitis Additional Impressions: Psychosis Psychosis type: unspecified psychosis type Qualified Code: F29 - Psychosis, unspecified psychosis type Agitation Condition: CARLOS Garcia MD Jun 10, 2017 19:14
--- NOTE | 2017-06-10 19:20 | PSY ---
Date/Time of Note Date/Time of Note DATE: 06/10/17 TIME: 19:14 Psychiatric Subjective Eval Subjective Evaluation Patient location: emergency Chief Complaint: BROUGHT IN VIA EMS FROM THE STREETS DUE TO AGITATION AND HURTING OTHERS - Reason for consult: evaluation of patient History of present illness Discussed with Dr. Ortiz, reviewed records, patient too sedated to materially participate in interview. She was able to wake up but quickly shut her eyes and drifted off to sleep. Per report, she was given an injection of haldol and ativan. She calmed and was medically treated. At that time, she was more alert and the thought was that her positive meth and cannabis may be reason for agitation. However, in meantime, medication has caused too much sedation for her to be interviewed. Past psychiatric history She has a history of psychosis as noted in previous visits. Medical history Problems Medical Problems: (1) Abdominal pain affecting Status: Acute (2) Agitation Status: Acute (3) Cystitis Status: Acute (4) Drug use Status: Acute (5) Methamphetamine abuse Status: Acute (6) Psychosis Status: Acute Allergies: Coded Allergies: No Known Allergy (Unverified , 01/30/16) Substance Abuse Substance abuse history: Yes (Meth, Cannabis) Social History Level of education: Unk Occupation/Residential: Unk Psychiatric Objective Eval Mental Status Examination: Appearance: Disheveled Eye Contact: Poor Psychomotor Activity: Slow Speech: Slurred On 72 hour hold: No Orientation: No orientation Cognition: Drowsy Laboratory Results Laboratory Tests Test 06/10/17 15:35 06/10/17 16:25 White Blood Count 7.410^3/ul Red Blood Count 3.5810^6/ul Hemoglobin 11.3g/dl Hematocrit 34.1% Mean Corpuscular Volume 95.3fl Mean Corpuscular Hemoglobin 31.6pg Mean Corpuscular Hemoglobin Concent 33.1g/dl Red Cell Distribution Width 13.5% Platelet Count 03426^3/UL Mean Platelet Volume 9.7fl Neutrophils % 59.0% Lymphocytes % 31.6% Monocytes % 7.5% Eosinophils % 1.5% Basophils % 0.3% Nucleated Red Blood Cells % 0.0/100WBC Neutrophils # (Manual) 4.410^3/ul Lymphocytes # 2.310^3/ul Monocytes # 0.610^3/ul Eosinophils # 0.110^3/ul Basophils # 0.010^3/ul Nucleated Red Blood Cells # 0.010^3/ul Sodium Level 148mmol/L Potassium Level 3.5mmol/L Chloride Level 107mmol/L Carbon Dioxide Level 27mmol/L Anion Gap 18 Blood Urea Nitrogen 10mg/dl Creatinine 0.69mg/dl Glucose Level 132mg/dl Calcium Level 9.1mg/dl Total Bilirubin 0.3mg/dl Direct Bilirubin 0.00mg/dl Indirect Bilirubin 0.3mg/dl Aspartate Amino Transf (AST/SGOT) 44IU/L Alanine Aminotransferase (ALT/SGPT) 37IU/L Alkaline Phosphatase 67IU/L Total Protein 7.1g/dl Albumin 3.8g/dl Globulin 3.30g/dl Albumin/Globulin Ratio 1.15 Salicylates Level < 1.0mg/dl Acetaminophen Level < 10.0ug/ml Ethyl Alcohol Level < 10.0mg/dl Urine Color ANDREA Urine Clarity CLOUDY Urine pH 5.0 Urine Specific [place] 1.033 Urine Ketones TRACEmg/dL Urine Nitrite NEGATIVEmg/dL Urine Bilirubin 1+mg/dL Urine Urobilinogen 1+mg/dL Urine Leukocyte Esterase 2+Carlos Alberto/ul Urine Microscopic RBC 5/HPF Urine Microscopic WBC 45/HPF Urine Squamous Epithelial Cells MODERATE/HPF Urine Bacteria FEW/HPF Urine Mucus MANY/HPF Urine Hemoglobin NEGATIVEmg/dL Urine Glucose NEGATIVEmg/dL Urine Total Protein 2+mg/dl Urine Opiates Screen Negative Urine Barbiturates Negative Urine Amphetamines Screen POSITIVE Urine Benzodiazepines Screen Negative Urine Cocaine Screen Negative Urine Cannabinoids Positive Assessment and Plan Assessment/Diagnosis [place] I: Agitation, Stimulant Use Disorder Recommendation/Plan Medication Management No recommendations at this time. Encourage sleep and rest until she can be re- evaluated. Follow-up/Disposition Please re-consult psychiatry once patient is more alert. 5150 Recommendation: KOFFI WASHINGTON Jun 10, 2017 19:20
[2017-06-11 00:24] VITALS: BP 123/65; PULSE 70; RESP 16; TEMP 97.9
--- NOTE | 2017-06-11 01:31 | PSY ---
Date/Time of Note Date/Time of Note DATE: 06/11/17 TIME: 01:22 Psychiatric Subjective Eval Subjective Evaluation Patient location: emergency Chief Complaint: BROUGHT IN VIA EMS FROM THE STREETS DUE TO AGITATION AND HURTING OTHERS - Reason for consult: evaluation of patient History of present illness patient is a 32 yo female with PPH Of bipolar do and methamphetamine abuse who was brought in by the police after she was found wandering the street, disorganized and running after people threatening them, in the ER she continued to be agitated and to be medicated with haldol, ativan and benadryl . During the interview patient is calm and cooperative and states that she was brought in to get evaluated and get back on her medication and cant remember what happened in the street. she states that she has been abusing methamphetamine but has been sober for 2 days and is trying to get clean to get her children back, she states that she has been feeling depressed, and anxious , denies any current SI and HI, denies any current psychotic symptoms, she is alert and oriented, logical and goal directed. Past psychiatric history past suicidal attempt no Medical history Problems Medical Problems: (1) Abdominal pain affecting Status: Acute (2) Agitation Status: Acute (3) Cystitis Status: Acute (4) Drug use Status: Acute (5) Methamphetamine abuse Status: Acute (6) Psychosis Status: Acute Allergies: Coded Allergies: No Known Allergy (Unverified , 01/30/16) Substance Abuse Substance abuse history: Yes (amphetamine ) Prior substance abuse treatmen: No Social History Level of education: [employer] DPA/Conservatorship: No Occupation/Shelter: unemployed Psychiatric Objective Eval Review of Systems: Review of Systems: Not Applicable Physical Examination: Physical Examination: Applicable Sleep: Insomnia Appetite: Decreased Energy: Decreased Interest: Decreased Mental Status Examination: Appearance: Disheveled Eye Contact: Fair Behavior: Cooperative Speech: Clear AFFECT: Depressed Mood: Depressed Though Process: Linear Thought Content: Normal Suicidal: No Homicidal: No On 72 hour hold: No Orientation: x3 Cognition: Alert Insight: Intact Judgement: Intact Attention Span: Intact Laboratory Results Laboratory Tests Test 06/10/17 15:35 06/10/17 16:25 White Blood Count 7.410^3/ul Red Blood Count 3.5810^6/ul Hemoglobin 11.3g/dl Hematocrit 34.1% Mean Corpuscular Volume 95.3fl Mean Corpuscular Hemoglobin 31.6pg Mean Corpuscular Hemoglobin Concent 33.1g/dl Red Cell Distribution Width 13.5% Platelet Count 19139^3/UL Mean Platelet Volume 9.7fl Neutrophils % 59.0% Lymphocytes % 31.6% Monocytes % 7.5% Eosinophils % 1.5% Basophils % 0.3% Nucleated Red Blood Cells % 0.0/100WBC Neutrophils # (Manual) 4.410^3/ul Lymphocytes # 2.310^3/ul Monocytes # 0.610^3/ul Eosinophils # 0.110^3/ul Basophils # 0.010^3/ul Nucleated Red Blood Cells # 0.010^3/ul Sodium Level 148mmol/L Potassium Level 3.5mmol/L Chloride Level 107mmol/L Carbon Dioxide Level 27mmol/L Anion Gap 18 Blood Urea Nitrogen 10mg/dl Creatinine 0.69mg/dl Glucose Level 132mg/dl Calcium Level 9.1mg/dl Total Bilirubin 0.3mg/dl Direct Bilirubin 0.00mg/dl Indirect Bilirubin 0.3mg/dl Aspartate Amino Transf (AST/SGOT) 44IU/L Alanine Aminotransferase (ALT/SGPT) 37IU/L Alkaline Phosphatase 67IU/L Total Protein 7.1g/dl Albumin 3.8g/dl Globulin 3.30g/dl Albumin/Globulin Ratio 1.15 Salicylates Level < 1.0mg/dl Acetaminophen Level < 10.0ug/ml Ethyl Alcohol Level < 10.0mg/dl Urine Color ANDREA Urine Clarity CLOUDY Urine pH 5.0 Urine Specific [place] 1.033 Urine Ketones TRACEmg/dL Urine Nitrite NEGATIVEmg/dL Urine Bilirubin 1+mg/dL Urine Urobilinogen 1+mg/dL Urine Leukocyte Esterase 2+Carlos Alberto/ul Urine Microscopic RBC 5/HPF Urine Microscopic WBC 45/HPF Urine Squamous Epithelial Cells MODERATE/HPF Urine Bacteria FEW/HPF Urine Mucus MANY/HPF Urine Hemoglobin NEGATIVEmg/dL Urine Glucose NEGATIVEmg/dL Urine Total Protein 2+mg/dl Urine Opiates Screen Negative Urine Barbiturates Negative Urine Amphetamines Screen POSITIVE Urine Benzodiazepines Screen Negative Urine Cocaine Screen Negative Urine Cannabinoids Positive Assessment and Plan Assessment/Diagnosis [place] 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 Based on available evidence, this condition CAN be safely treated at a lower level of care effective today. Patient is stable without clear and convincing evidence of imminent danger due to mental illness that requires acute inpatient psychiatric care as the least restrictive alternative. Please discharge patient with referral for follow up to a outpatient mental health clinic for psychotherapy and medication. HORACIO VALDEZ MD Jun 11, 2017 01:31
[2017-06-11] MEDS ORDERED: QUET200T PO (02:13)
[2017-06-11] MEDS ORDERED: BUPR-34 PO (02:13)
--- NOTE | 2017-06-11 02:24 | EN ---
Date/Time of Note Date/Time of Note DATE: 06/11/17 TIME: 02:22 ER Progress Note Observation Note: Time: 4 hour Family Hx: No Hypertension Evaluation: Multiple exams showed improving symptoms and no evidence of clinical deterioration She was seen via noted by telepsychiatrist Dr Ruth who recommended discharging her with Seroquel and Wellbutrin JOSE DUMONT MD Jun 11, 2017 02:24
== END 2017-06-11 02:30 | disposition home or self-care (01) ==
LOC: E/R 14:48
DX: N30.90 Cystitis, unspecified without hematuria (principal); F29 Unspecified psychosis not due to a substance or known physiological condition; F17.210 Nicotine dependence, cigarettes, uncomplicated; R41.82 Altered mental status, unspecified; S01.81XA Laceration without foreign body of other part of head, initial encounter; X58.XXXA Exposure to other specified factors, initial encounter; Y92.9 Unspecified place or not applicable
CPT/HCPCS: 70450; 80053; 80306; 80307; 81001; 85025; 90715; J1200; J1630; J2060; Z7610; 36415; 90471; 96372

== ENCOUNTER 2017-06-12 14:16 | Emergency (ER) | payer OTHER ==
[~2017-06-12] VITALS: Ht 162.6 cm; Wt 72.7 kg
[~2017-06-12 14:16] MED LIST changes: +BUPR-34 PO; -HALOPERIDOL 5 MG INJ IM ONE; -HALOPERIDOL 5 MG INJ ONE; -LORAZEPAM 2 MG INJ IM STA; +QUET200T PO
[2017-06-12 14:22] VITALS: Ht 162.6 cm; Wt 72.7 kg
[2017-06-12 15:39] LABS: BASOPHILS % 0.4 % (0.0-2.0); EOSINOPHILS # 0.1 10^3/ul (0.0-0.5); EOSINOPHILS % 1.3 % (0.0-7.0); HEMATOCRIT 34.6 % (37.0-47.0); HEMOGLOBIN 11.4 g/dl (12.0-16.0); LYMPHOCYTES # 2.5 10^3/ul (0.8-2.9); LYMPHOCYTES % 29.9 % (15.0-51.0); MEAN CORPUSCULAR HEMOGLOBIN 31.6 pg (29.0-33.0); MEAN CORPUSCULAR HGB CONC 32.9 g/dl (32.0-37.0); MEAN CORPUSCULAR VOLUME 95.8 fl (82.0-101.0); MEAN PLATELET VOLUME 9.8 fl (7.4-10.4); MONOCYTE # 0.9 10^3/ul (0.3-0.9); MONOCYTES % 10.5 % (0.0-11.0); NEUTROPHILS % 57.8 % (39.0-77.0); PLATELET COUNT 296 10^3/UL (140-415); RED BLOOD COUNT 3.61 10^6/ul (4.20-5.40); RED CELL DISTRIBUTION WIDTH 13.3 % (11.5-14.5); WHITE BLOOD COUNT 8.4 10^3/ul (4.8-10.8)
[2017-06-12 16:03] LABS: ALANINE AMINOTRANSFERASE 37 IU/L (13-69); ALBUMIN 3.8 g/dl (3.3-4.9); ALBUMIN/GLOBULIN RATIO 1.11; ALKALINE PHOSPHATASE 69 IU/L (42-121); ANION GAP 14 (8-16); ASPARTATE AMINO TRANSFERASE 35 IU/L (15-46); BILIRUBIN,INDIRECT 0.3 mg/dl (0-1.1); BILIRUBIN,TOTAL 0.3 mg/dl (0.2-1.3); BLOOD UREA NITROGEN 12 mg/dl (7-20); CALCIUM 9.1 mg/dl (8.4-10.2); CARBON DIOXIDE 24 mmol/L (21-31); CHLORIDE 104 mmol/L (97-110); CREATININE 0.69 mg/dl (0.44-1.00); GLUCOSE 104 mg/dl (70-220); POTASSIUM 3.9 mmol/L (3.5-5.1); SODIUM 138 mmol/L (135-144); TOTAL PROTEIN 7.2 g/dl (6.1-8.1)
[2017-06-12 16:08] LABS: ACETAMINOPHEN < 10.0 ug/ml (10.0-30.0); ETHANOL < 10.0 mg/dl; SALICYLATE < 1.0 mg/dl (5.0-30.0)
--- NOTE | 2017-06-12 17:17 | PSY ---
Date/Time of Note Date/Time of Note DATE: 06/12/17 TIME: 20:13 Psychiatric Subjective Eval Consent Pt consented to telemedicine: Yes Subjective Evaluation Patient location: emergency Chief Complaint: Pt was found in an apt court yard aggitated History of present illness HPI: The patient is a 32 yo female with an unclear psych hx, byreport of nurse was brought in by oplice found acting bizarrely in her courtyard, was trying to lock herself in side of a laundromate. tried to speak with pt. She had marked psychomotor agitation, kep throwing her arm back and forth, saying "sshhh " very loudly to no one, very abruptly began to cry very profusely and covered robot monitor with curtain. Says she does not remembe ranything. Unable to obtain any other info due to disorganization and agitation MSE: very disheveled, odd movements as in hpi, disorganized, says she does not remember anythingn aborts interview as above, agitated as above, abruptly very tearful and crying heavily, would not answer other questions Imp: 32 yo female in severely agitated state, unable to care for self in community in this state -5150 psych admit -uhcg and utox -if uhcg negative, zyprexa 5mg po x1 now and prn moderate agitation -for severe agitation haldol 5mg im ativan 2mg im cogentin 1mg im prn Allergies: Coded Allergies: No Known Allergy (Unverified , 06/12/17) Psychiatric Objective Eval Mental Status Examination: Laboratory Results Laboratory Tests Test 06/12/17 15:30 White Blood Count 8.410^3/ul Red Blood Count 3.6110^6/ul Hemoglobin 11.4g/dl Hematocrit 34.6% Mean Corpuscular Volume 95.8fl Mean Corpuscular Hemoglobin 31.6pg Mean Corpuscular Hemoglobin Concent 32.9g/dl Red Cell Distribution Width 13.3% Platelet Count 46128^3/UL Mean Platelet Volume 9.8fl Neutrophils % 57.8% Lymphocytes % 29.9% Monocytes % 10.5% Eosinophils % 1.3% Basophils % 0.4% Nucleated Red Blood Cells % 0.0/100WBC Neutrophils # (Manual) 4.910^3/ul Lymphocytes # 2.510^3/ul Monocytes # 0.910^3/ul Eosinophils # 0.110^3/ul Basophils # 0.010^3/ul Nucleated Red Blood Cells # 0.010^3/ul Sodium Level 138mmol/L Potassium Level 3.9mmol/L Chloride Level 104mmol/L Carbon Dioxide Level 24mmol/L Anion Gap 14 Blood Urea Nitrogen 12mg/dl Creatinine 0.69mg/dl Glucose Level 104mg/dl Calcium Level 9.1mg/dl Total Bilirubin 0.3mg/dl Direct Bilirubin 0.00mg/dl Indirect Bilirubin 0.3mg/dl Aspartate Amino Transf (AST/SGOT) 35IU/L Alanine Aminotransferase (ALT/SGPT) 37IU/L Alkaline Phosphatase 69IU/L Total Protein 7.2g/dl Albumin 3.8g/dl Globulin 3.40g/dl Albumin/Globulin Ratio 1.11 Salicylates Level < 1.0mg/dl Acetaminophen Level < 10.0ug/ml Ethyl Alcohol Level < 10.0mg/dl CHANEL MASSEY Jun 12, 2017 17:17
--- NOTE | 2017-06-12 17:47 | ERA ---
ER Documentation Chief Complaint Date/Time DATE: 06/12/17 TIME: 17:45 Chief Complaint Pt was found in an apt court yard aggitated HPI This is a 32-year-old female who presents to the emergency room after being brought in by EMS and police for evaluation of agitated and aggressive behavior. This patient was found in an apartment courtyard and was yelling and was starting to lock herself in the apartment laundromat. This patient's history is somewhat limited given her psychiatric condition however she is denying homicidal or suicidal ideation. ROS All systems reviewed and are negative except as per history of present illness. Medications Home Meds Unable to Obtain Active Prescriptions or Reported Meds Allergies Allergies: Coded Allergies: No Known Allergy (Unverified , 06/12/17) PMhx/Soc Medical and Surgical Hx: pt denies Medical Hx, pt denies Surgical Hx, Unable to obtain Hx Alcohol Use: No (denies ) Hx Substance Use: No (denies ) Hx Tobacco Use: No (denies) Smoking Status: Unknown if ever smoked Physical Exam Vitals Vital Signs Date Time Temp Pulse Resp B/P Pulse Ox O2 Delivery O2 Flow Rate FiO2 06/12/17 14:22 98.7 101 22 126/83 97 Physical Exam INITIAL VITAL SIGNS: Reviewed by me GENERAL: The patient has a disheveled appearance HEENT: Pupils equal, round, and reactive to light. EOMI. There is no scleral icterus. NECK: C-spine is soft and supple, there is no meningismus. There is no cervical lymphadenopathy. LUNGS: Clear to auscultation bilaterally. There are no rales, wheezes or rhonchi. HEART: Regular rate and rhythm, no murmurs, clicks, rubs or gallops. ABDOMEN: Soft, non-tender, non-distended. There are bowel sounds in all four quadrants. No rebound or guarding. EXTREMITIES: There is no peripheral cyanosis or edema. No focal swelling or erythema. NEUROLOGICAL: The patient moves all four extremities with 5/5 strength. Cranial nerves II - XII are intact. Normal gait. Alert and oriented SKIN: There is no apparent rash or petechiae. HEME/LYMPHATIC: There is no evidence of excessive bruising or lymphedema. PSYCHIATRIC: The patient does appear to have an agitated affect Result Diagram: 06/12/17 1530 06/12/17 1530 Results 24 hrs Laboratory Tests Test 06/12/17 15:30 White Blood Count 8.410^3/ul Red Blood Count 3.6110^6/ul Hemoglobin 11.4g/dl Hematocrit 34.6% Mean Corpuscular Volume 95.8fl Mean Corpuscular Hemoglobin 31.6pg Mean Corpuscular Hemoglobin Concent 32.9g/dl Red Cell Distribution Width 13.3% Platelet Count 69473^3/UL Mean Platelet Volume 9.8fl Neutrophils % 57.8% Lymphocytes % 29.9% Monocytes % 10.5% Eosinophils % 1.3% Basophils % 0.4% Nucleated Red Blood Cells % 0.0/100WBC Neutrophils # (Manual) 4.910^3/ul Lymphocytes # 2.510^3/ul Monocytes # 0.910^3/ul Eosinophils # 0.110^3/ul Basophils # 0.010^3/ul Nucleated Red Blood Cells # 0.010^3/ul Sodium Level 138mmol/L Potassium Level 3.9mmol/L Chloride Level 104mmol/L Carbon Dioxide Level 24mmol/L Anion Gap 14 Blood Urea Nitrogen 12mg/dl Creatinine 0.69mg/dl Glucose Level 104mg/dl Calcium Level 9.1mg/dl Total Bilirubin 0.3mg/dl Direct Bilirubin 0.00mg/dl Indirect Bilirubin 0.3mg/dl Aspartate Amino Transf (AST/SGOT) 35IU/L Alanine Aminotransferase (ALT/SGPT) 37IU/L Alkaline Phosphatase 69IU/L Total Protein 7.2g/dl Albumin 3.8g/dl Globulin 3.40g/dl Albumin/Globulin Ratio 1.11 Salicylates Level < 1.0mg/dl Acetaminophen Level < 10.0ug/ml Ethyl Alcohol Level < 10.0mg/dl Current Medications Medications (Trade) Dose Ordered Sig/Shamika Route PRN Reason Start Time Stop Time Status Last Admin Dose Admin Olanzapine (Zyprexa) 5 mg ONCE ONCE PO 06/12/17 18:00 06/12/17 18:01 Procedures/MDM This 32-year-old female presents to the ER for evaluation of agitated behavior. When I evaluated this patient she did have some mild agitation however she was refusing denying any homicidal suicidal ideation. This patient did have lab work drawn and was refusing to give a urine sample. I did consult our tele- psychiatric physician who states this patient should be placed on a hold. This patient will be evaluated by PMRT and we will await any available psychiatric facilities to accept this patient. Patient presents with symptomatology consistent with the decompensation of previously diagnosed psychiatric disease. Based on history, physical exam and appropriate lab tests, I appreciate no evidence of significant life-threatening injury or illness that includes a psychiatric hospitalization. Patient is thus "medically clear" for psychiatric admission. In regards to the psychiatric complaints, this patient has clear evidence of high risk psychiatric symptoms with significant risk for decompensation, thus requiring admission to the hospital for stabilization. Departure Diagnosis: Primary Impression: Agitation Condition: Stable ABBEY KLINE DO Jun 12, 2017 17:47
[2017-06-12] MEDS ORDERED: OLANZAPINE 5 MG TAB PO ONE (18:00)
[2017-06-12] MEDS ORDERED: LORAZEPAM 2 MG INJ IM ONE (18:00)
[2017-06-12] MEDS ORDERED: HALOPERIDOL 5 MG INJ IM ONE (18:00)
[2017-06-13 06:24] LABS: ADD UMIC YES; UR ASCORBIC ACID 40 mg/dL (NEGATIVE); UR BACTERIA FEW /HPF (NONE SEEN); UR BILIRUBIN (Dip) NEGATIVE (NEGATIVE); UR BLOOD (Dip) NEGATIVE (NEGATIVE); UR CLARITY CLOUDY (CLEAR); UR COLOR AMBER (YELLOW); UR GLUCOSE (Dip) NEGATIVE (NEGATIVE); UR KETONES (Dip) NEGATIVE (NEGATIVE); UR LEUKOCYTE ESTERASE (Dip) 3+ Leu/ul (NEGATIVE); UR MUCUS FEW /HPF (NONE SEEN); UR NITRITE (Dip) NEGATIVE (NEGATIVE); UR RBC 28 /HPF (0-5); UR SPECIFIC GRAVITY (Dip) 1.031 (1.003-1.030); UR SQUAMOUS EPITHELIAL CELL MODERATE /HPF (FEW); UR TOTAL PROTEIN (Dip) 1+ mg/dl (NEGATIVE); UR UROBILINOGEN (Dip) 1+ mg/dL (NEGATIVE)
[2017-06-13 06:40] LABS: CANNABINOIDS Positive (NEGATIVE); COCAINE Negative (NEGATIVE)
[2017-06-13 06:47] LABS: BARBITURATES Negative (NEGATIVE); BENZODIAZEPINES Negative (NEGATIVE); OPIATES Negative (NEGATIVE)
[2017-06-13] MEDS ORDERED: HALOPERIDOL 5 MG INJ ONE (11:39)
[2017-06-13] MEDS ORDERED: HALOPERIDOL 5 MG INJ IM ONE (12:00)
[2017-06-13] MEDS ORDERED: OLANZAPINE 5 MG TAB PO ONE ×2 (12:00→21:30)
[2017-06-13] MEDS ORDERED: LORAZEPAM 2 MG INJ ONE (12:16)
[2017-06-13] MEDS ORDERED: LORAZEPAM 2 MG INJ IM ONE (12:30)
[2017-06-13] MEDS ORDERED: LORAZEPAM 2 MG INJ IV ONE (21:30)
[2017-06-14] MEDS ORDERED: DIPHENHYDRAMINE 50 MG INJ ONE (03:09)
[2017-06-14] MEDS ORDERED: HALOPERIDOL 5 MG INJ ONE (03:09)
[2017-06-14] MEDS ORDERED: DIPHENHYDRAMINE 50 MG INJ IM ONE (03:30)
[2017-06-14] MEDS ORDERED: HALOPERIDOL 5 MG INJ IM ONE ×3 (03:30→10:00)
[2017-06-14] MEDS ORDERED: LORAZEPAM 2 MG INJ IM ONE ×2 (03:30→09:00)
--- NOTE | 2017-06-14 07:40 | PSY ---
Date/Time of Note Date/Time of Note DATE: 06/14/17 TIME: 07:27 Psychiatric Subjective Eval Consent Pt consented to telemedicine: Yes Subjective Evaluation Patient location: emergency Chief Complaint: Pt was found in an apt court yard aggitated History of present illness reeval. 32/f, stated she olmstead biipolar, " I need my Seroquel 200" she started crying, was agitated, inspite of Zyprexa . Tox screen pos amphetamiene " I do ot becasue it speeds me upI cn do things" Past psychiatric history as above Medical history Problems Medical Problems: (1) Agitation Status: Acute Allergies: Coded Allergies: No Known Allergy (Unverified , 06/12/17) Substance Abuse Substance abuse history: Yes Social History Marital status: single Psychiatric Objective Eval Review of Systems: Review of Systems: Not Applicable Physical Examination: Physical Examination: Not Applicable Mental Status Examination: Appearance: Disheveled Eye Contact: Fair Psychomotor Activity: Agitated Behavior: Agitated Speech: Disorganized AFFECT: Libile Mood: Depressed Though Process: Loose, Tangential, Circumstantial Suicidal: No Homicidal: No Orientation: x3 Cognition: Alert Insight: Impared Judgement: Impared Attention Span: Distractible Laboratory Results Laboratory Tests Test 06/12/17 15:30 06/12/17 15:33 06/13/17 06:00 White Blood Count 8.410^3/ul Red Blood Count 3.6110^6/ul Hemoglobin 11.4g/dl Hematocrit 34.6% Mean Corpuscular Volume 95.8fl Mean Corpuscular Hemoglobin 31.6pg Mean Corpuscular Hemoglobin Concent 32.9g/dl Red Cell Distribution Width 13.3% Platelet Count 26069^3/UL Mean Platelet Volume 9.8fl Neutrophils % 57.8% Lymphocytes % 29.9% Monocytes % 10.5% Eosinophils % 1.3% Basophils % 0.4% Nucleated Red Blood Cells % 0.0/100WBC Neutrophils # (Manual) 4.910^3/ul Lymphocytes # 2.510^3/ul Monocytes # 0.910^3/ul Eosinophils # 0.110^3/ul Basophils # 0.010^3/ul Nucleated Red Blood Cells # 0.010^3/ul Sodium Level 138mmol/L Potassium Level 3.9mmol/L Chloride Level 104mmol/L Carbon Dioxide Level 24mmol/L Anion Gap 14 Blood Urea Nitrogen 12mg/dl Creatinine 0.69mg/dl Glucose Level 104mg/dl Calcium Level 9.1mg/dl Total Bilirubin 0.3mg/dl Direct Bilirubin 0.00mg/dl Indirect Bilirubin 0.3mg/dl Aspartate Amino Transf (AST/SGOT) 35IU/L Alanine Aminotransferase (ALT/SGPT) 37IU/L Alkaline Phosphatase 69IU/L Total Protein 7.2g/dl Albumin 3.8g/dl Globulin 3.40g/dl Albumin/Globulin Ratio 1.11 Salicylates Level < 1.0mg/dl Acetaminophen Level < 10.0ug/ml Ethyl Alcohol Level < 10.0mg/dl Serum HCG, Qualitative NEGATIVE Urine Color ANDREA Urine Clarity CLOUDY Urine pH 5.0 Urine Specific [place] 1.031 Urine Ketones NEGATIVEmg/dL Urine Nitrite NEGATIVEmg/dL Urine Bilirubin NEGATIVEmg/dL Urine Urobilinogen 1+mg/dL Urine Leukocyte Esterase 3+Carlos Alberto/ul Urine Microscopic RBC 28/HPF Urine Microscopic WBC 154/HPF Urine Squamous Epithelial Cells MODERATE/HPF Urine Bacteria FEW/HPF Urine Mucus FEW/HPF Urine Hemoglobin NEGATIVEmg/dL Urine Glucose NEGATIVEmg/dL Urine Total Protein 1+mg/dl Urine Opiates Screen Negative Urine Barbiturates Negative Urine Amphetamines Screen POSITIVE Urine Benzodiazepines Screen Negative Urine Cocaine Screen Negative Urine Cannabinoids Positive Assessment and Plan Assessment/Diagnosis [place] I: bipolar affective diosrder mixed aphetamine use diosrder [place] II: deferred [place] III: none [place] IV: moderate [place] V: 20 Recommendation/Plan Medication Management d/c Zyprexa Seroquel 50mg in am and 50mg in the afternoon, and 200mg HS. Follow-up/Disposition continue hold either 5150 or chnage to 5250. Needs sychiatric hopsitalization for grav disability . ( sever agitation, labile irritable mood, not sleeping eating well, not taking e=meds, unabe to provide basic health and life care needs) 5150 Recommendation: Continue Hold SERAFIN NICHOLSON MD Jun 14, 2017 07:37
[2017-06-14] MEDS ORDERED: OLANZAPINE (ODT) 5 MG TAB ODT SCH (09:00)
[2017-06-14] MEDS: QUETIAPINE 25 MG TAB PO SCH ×2 (09:00→12:52)
[2017-06-14] MEDS ORDERED: BENZTROPINE 2 MG INJ IM ONE (09:00)
[2017-06-14] MEDS ORDERED: IBUPROFEN 800 MG TAB PO ONE ×2 (09:30→16:30)
[2017-06-14] MEDS ORDERED: QUETIAPINE 100 MG TAB PO SCH (21:00)
[2017-06-15] MEDS ORDERED: DIPHENHYDRAMINE 50 MG INJ ONE (04:57)
[2017-06-15] MEDS ORDERED: HALOPERIDOL 5 MG INJ ONE (04:57)
[2017-06-15] MEDS ORDERED: DIPHENHYDRAMINE 50 MG INJ IM ONE ×2 (05:00→12:30)
[2017-06-15] MEDS ORDERED: HALOPERIDOL 5 MG INJ IM ONE ×3 (05:00→12:30)
[2017-06-15] MEDS ORDERED: LORAZEPAM 2 MG INJ IM ONE (08:00)
[2017-06-15] MEDS: QUETIAPINE 25 MG TAB PO SCH ×2 (09:00→11:30)
--- NOTE | 2017-06-15 15:54 | PSY ---
Date/Time of Note Date/Time of Note DATE: 06/15/17 TIME: 15:46 Psychiatric Subjective Eval Subjective Evaluation Patient location: emergency Chief Complaint: Pt was found in an apt court yard aggitated History of present illness re-evall requested for 32 yo homeless female with hx bipolar disorder and amphetamine use disorder. Pt was BIB police for agitaiton and confusion. Pt was seen by Dr Andersen and Dr Gore. 5150 and inpt psych were recommended. Pt insists she is fine and wants to leave. She sys she lives with her parents but then says she is not allowed there and she lives "[place] the [place]". Pt quickly became agitated and loud duering this re-evaluation. Past psychiatric history please see prior eval Hospitalization: yes Medical history Problems Medical Problems: (1) Abdominal pain affecting Status: Acute (2) Agitation Status: Acute (3) Agitation Status: Acute (4) Cystitis Status: Acute (5) Drug use Status: Acute (6) Methamphetamine abuse Status: Acute (7) Psychosis Status: Acute Allergies: Coded Allergies: No Known Allergy (Unverified , 01/30/16) Substance Abuse Substance abuse history: Yes Prior substance abuse treatmen: Yes Social History Marital status: single DPA/Conservatorship: No Psychiatric Objective Eval Mental Status Examination: Eye Contact: Fair Psychomotor Activity: Agitated Behavior: Agitated Speech: Loud AFFECT: Libile Mood: Irritable Though Process: Tangential Thought Content: Delusions Suicidal: No Homicidal: No On 72 hour hold: Yes Orientation: x2 Cognition: Alert Insight: Impared Judgement: Impared Assessment and Plan Assessment/Diagnosis [place] I: Schizoaffective disorder. Amph use disorder. [place] II: defered [place] III: nad [place] IV: severe [place] V: 15 Recommendation/Plan Medication Management Please increase Seroquel to 100 mg po BID and 3oo mg poqhs Follow-up/Disposition 5150 for DTO< GD; transfer to inpt psych. 5150 Recommendation: Continue Hold OMEGA PUGH MD Jun 15, 2017 15:54
[2017-06-15] MEDS ORDERED: QUETIAPINE 100 MG TAB PO SCH ×2 (18:00→21:00)
--- NOTE | 2017-06-15 20:12 | EN ---
Date/Time of Note Date/Time of Note DATE: 06/15/17 TIME: 20:09 ER Progress Note Observation note: The patient was signed out to me by Dr. Roman. Very briefly this is a 32-year- old female who is presenting with acute psychosis and agitation. The patient was evaluated by the tele-psychiatrist who recommended a 5150 hold. At time of signout, the patient was pending acceptance from a psychiatric facility. The patient was intermittently agitated during my shift, but she calm down without medical or physical restraint. The patient was resting comfortably in the emergency department at the end of my shift. She was ultimately accepted by a psychiatric facility. She is currently pending transfer. The patient was signed out to Dr. Andrade at 8 PM on June 15, 2017. TREVA DOZIER MD Jun 15, 2017 20:12
[2017-06-15 21:03] VITALS: BP 128/80; PULSE 80; RESP 20; TEMP 98.4
== END 2017-06-15 21:04 ==
LOC: E/R 14:16 → MERGE 14:16 → E/R 06-15 21:04
DX: R45.1 Restlessness and agitation (principal); R40.2142 Coma scale, eyes open, spontaneous, at arrival to emergency department; R40.2242 Coma scale, best verbal response, confused conversation, at arrival to emergency department; R40.2362 Coma scale, best motor response, obeys commands, at arrival to emergency department
CPT/HCPCS: 36415; 80053; 80306; 80307; 81001; 84703; 85025; 96372; J1200; J1630; J2060; Z7502; Z7610

== ENCOUNTER 2017-08-05 12:51 | Emergency (ER) | payer MEDICAID, OTHER ==
[~2017-08-05] VITALS: Ht 162.6 cm; Wt 72.0 kg
[2017-08-05 12:51] VITALS: Ht 162.6 cm; Wt 72.0 kg
[2017-08-05] MEDS ORDERED: SOD CHLORIDE 0.9% 1,000 ML IV STA (12:54)
[2017-08-05] MEDS ORDERED: LORAZEPAM 2 MG INJ IV STA (12:54)
[2017-08-05 13:10] LABS: BASOPHIL # 0.1 10^3/ul (0.0-0.1); BASOPHILS % 0.5 % (0.0-2.0); EOSINOPHILS # 0.1 10^3/ul (0.0-0.5); EOSINOPHILS % 0.6 % (0.0-7.0); HEMATOCRIT 38.5 % (37.0-47.0); HEMOGLOBIN 12.3 g/dl (12.0-16.0); LYMPHOCYTES # 3.6 10^3/ul (0.8-2.9); LYMPHOCYTES % 29.6 % (15.0-51.0); MEAN CORPUSCULAR HEMOGLOBIN 30.6 pg (29.0-33.0); MEAN CORPUSCULAR HGB CONC 31.9 g/dl (32.0-37.0); MEAN CORPUSCULAR VOLUME 95.8 fl (82.0-101.0); MEAN PLATELET VOLUME 9.8 fl (7.4-10.4); MONOCYTES % 7.8 % (0.0-11.0); NEUTROPHIL # 7.5 10^3/ul (1.6-7.5); NEUTROPHILS % 61.3 % (39.0-77.0); PLATELET COUNT 315 10^3/UL (140-415); RED BLOOD COUNT 4.02 10^6/ul (4.20-5.40); RED CELL DISTRIBUTION WIDTH 13.2 % (11.5-14.5); WHITE BLOOD COUNT 12.2 10^3/ul (4.8-10.8)
[2017-08-05 13:32] LABS: ALANINE AMINOTRANSFERASE 38 IU/L (13-69); ALBUMIN 4.6 g/dl (3.3-4.9); ALBUMIN/GLOBULIN RATIO 1.24; ALKALINE PHOSPHATASE 77 IU/L (42-121); ANION GAP 14 (8-16); ASPARTATE AMINO TRANSFERASE 46 IU/L (15-46); BILIRUBIN,INDIRECT 0.4 mg/dl (0-1.1); BILIRUBIN,TOTAL 0.4 mg/dl (0.2-1.3); BLOOD UREA NITROGEN 18 mg/dl (7-20); CALCIUM 9.2 mg/dl (8.4-10.2); CARBON DIOXIDE 32 mmol/L (21-31); CHLORIDE 105 mmol/L (97-110); CREATININE 0.75 mg/dl (0.44-1.00); GLUCOSE 67 mg/dl (70-220); POTASSIUM 4.1 mmol/L (3.5-5.1); SODIUM 147 mmol/L (135-144); TOTAL PROTEIN 8.3 g/dl (6.1-8.1)
[2017-08-05 13:33] LABS: ACETAMINOPHEN < 10.0 ug/ml (10.0-30.0); SALICYLATE < 1.0 mg/dl (5.0-30.0)
[2017-08-05 13:34] LABS: ETHANOL < 10.0 mg/dl
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
[2017-08-05 14:16] VITALS: BP 122/74; PULSE 78; RESP 20
== END 2017-08-05 14:29 | disposition home or self-care (01) ==
LOC: E/R 12:51
DX: F15.90 Other stimulant use, unspecified, uncomplicated (principal); F17.210 Nicotine dependence, cigarettes, uncomplicated; Z71.6 Tobacco abuse counseling
CPT/HCPCS: 36415; 80053; 80306; 85025; J7030; Z7502

== ENCOUNTER → 2017-09-23 | Emergency (ER) | payer OTHER ==
[~2017-09-23] VITALS: Ht 167.6 cm; Wt 72.7 kg
[~2017-09-23] MED LIST changes: +HALOPERIDOL 5 MG INJ IM STA; +LORAZEPAM 2 MG INJ IM STA
[2017-09-23 09:35] VITALS: Ht 167.6 cm; Wt 72.7 kg
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
[2017-09-23 13:22] VITALS: BP 127/85; PULSE 89; RESP 20; TEMP 97.9
== END | disposition home or self-care (01) ==
LOC: E/R 09:31
DX: F15.10 Other stimulant abuse, uncomplicated (principal); R40.2142 Coma scale, eyes open, spontaneous, at arrival to emergency department; R40.2252 Coma scale, best verbal response, oriented, at arrival to emergency department; R40.2362 Coma scale, best motor response, obeys commands, at arrival to emergency department
CPT/HCPCS: 96372; J1630; J2060; Z7502

== ENCOUNTER 2018-04-16 13:13 | Emergency (ER) | END 2018-04-16 23:05 | disposition home or self-care (01) ==

== ENCOUNTER 2018-09-13 19:09 | Emergency (ER) | END 2018-09-13 20:55 | disposition home or self-care (01) ==